=== PATIENT | male | born 1985 | race Caucasian/White ===

== ENCOUNTER 2020-05-16 15:24 | Emergency (ER) | payer BC ==
[2020-05-16] MEDS ORDERED: Lidocaine 1% PF 2 ML SDV INJECT ONE (15:42)
[2020-05-16] MEDS ORDERED: Bacitracin Oint 1 GM U/D Packet TOP ONE (15:42)
--- NOTE | 2020-05-16 16:11 | EDM.PDOC ---
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 He states the heel washer stringing machine operator valve grazed across the distal aspect of the left index finger. He feels that his finger was full of fluid and he had to gently squeeze the finger to drain the water out. Pain is located the finger but now is radiating up the forearm. He is concerned that the pressure may have broke a bone inside. Patient denies any fever, chills, headache, change in vision, syncope or near syncope. Denies any chest pain, back pain, shortness of breath or cough. Denies any abdominal pain, nausea, vomiting, diarrhea, constipation or dysuria. Has not noted any blood in urine or stool. Patient has been eating and drinking appropriately. Review of systems: As per history of present illness and below otherwise all systems reviewed and negative. Past medical history: As per history of present illness and as reviewed below otherwise noncontributory. Surgical history: As per history of present illness and as reviewed below otherwise noncontributory. Social history: See social history for further information Family history: As per history of present illness and as reviewed below otherwise noncontributory. Physical exam: General: Well developed and well nourished 35-year-old male. Alert and oriented. Nontoxic-appearing and in no acute distress. HEENT: Atraumatic, normocephalic, pupils equal and reactive bilaterally, negative for conjunctival pallor or scleral icterus, mucous membranes moist, trachea midline. No drooling or trismus noted. No meningeal signs. No hot potato voice noted. Lungs: Clear to auscultation, breath sounds equal bilaterally, chest nontender. Heart: S1S2, regular rate and rhythm without overt murmur Abdomen: Soft, nondistended, nontender. Negative for masses or hepatosplenomegaly. Negative for costovertebral tenderness. Skin: Superficial laceration of the left index finger. Otherwise remaining skin is intact, warm, dry. No lesions or rashes noted. Extremities: Washer injury of the left index finger, moves all extremities per self without difficulty or deficits, negative for cords or calf pain. Neurovascular unremarkable. Neuro: Awake, alert, oriented. Cranial nerves II through XII unremarkable. Cerebellum unremarkable. Motor and sensory unremarkable throughout. Exam nonfocal. Notes: X-ray shows soft tissue air and soft tissue swelling in the left second finger. I did speak with the hand surgeon on-call at [facility], Dr. Caro, who states that patient is at high risk for infection and should monitor the site very closely. We will place him on Bactrim. Discussed in great length with the patient signs and symptoms that would prompt him to return to the emergency room. We also discussed having a wound recheck in the next 24 to 48 hours. He is aware of my conversation with Dr. Caro. Follow-up, medication and supportive care measures were reviewed and discussed. Voices understanding and is agreeable to plan of care. Denies any further questions or concerns at this time. Diagnostics: X-ray Therapeutics: Wound care, bacitracin, splint Prescription: Bactrim, [place] Impression: Water pressure injury, left finger Plan: 1. Your x-ray shows soft tissue air and soft tissue swelling of the affected digit. This type of injury does pose high risk for infection. So continue to monitor the site very closely. Wash gently with mild soap and water at least twice daily. Take the antibiotic as directed. If your symptoms should worsen, new symptoms develop or any of the signs and symptoms we discussed should arise please return to the emergency room or call 911 (if needed). 2. As we discussed you should have this reevaluated in 24 to 48 hours, especially if there is any change. 3. Tylenol and/or ibuprofen as needed for pain management. 4. You can follow-up with Dr. Caro, the hand surgeon at [facility] as we discussed or your primary care provider. Definitive disposition and diagnosis as appropriate pending reevaluation and review of above. left index Pain Score (Numeric/FACES): 7 - Related Data Allergies Allergy/AdvReac Type Severity Reaction Status Date / Time No Known Allergies Allergy Verified 05/16/20 16:28 Home Meds: Home Meds Acetaminophen/HYDROcodone [[place] 325-5 MG] 1 dose PO Q4H #10 tablet 05/16/20 [Rx] Sulfamethoxazole/Trimethoprim [Bactrim Ds Tablet] 1 each PO BID 7 Days #14 tablet 05/16/20 [Rx] Past Medical History - Past Surgical History Other Musculoskeletal Surgeries/Procedures:: acl/mcl reconstruction ED ROS GENERAL - Review of Systems Review Of Systems: Comprehensive ROS is negative, except as noted in HPI. ED EXAM, SKIN/RASH Exam: See Below (See dictation) Course - Vital Signs Last Recorded V/S: Last Vital Signs Temp 97 F 05/16/20 15:55 Pulse 98 05/16/20 15:55 Resp 16 05/16/20 15:55 BP 130/70 05/16/20 15:55 Pulse Ox 98 05/16/20 15:55 - Orders/Labs/Meds Meds: Medications Discontinued Medications Generic Name Dose Route Start Last Admin Trade Name Jeremias PRN Reason Stop Dose Admin Bacitracin 1 dose 05/16/20 15:42 05/16/20 17:19 Bacitracin Oint 1 Gm TOP 05/16/20 15:43 1 dose ONETIME ONE Administration Lidocaine HCl 2 ml 05/16/20 15:42 05/16/20 16:20 Xylocaine-Mpf 1% INJECT 05/16/20 15:43 Not Given ONETIME ONE Departure - Departure Time of Disposition: 17:21 Disposition: Home, Self-Care 01 Clinical Impression: Traumatic effect of water pressure - Discharge Information Prescriptions: Sulfamethoxazole/Trimethoprim [Bactrim Ds Tablet] 1 each PO BID 7 Days #14 tablet Acetaminophen/HYDROcodone [[place] 325-5 MG] 1 dose PO Q4H #10 tablet Instructions: Laceration Care, Adult, [id number] Referrals: PCP,None [Primary Care Provider] - Forms: ED Department Discharge Additional Instructions: The following information is given to patients seen in the emergency department who are being discharged to home. This information is to outline your options for follow-up care. We provide all patients seen in our emergency department with a follow-up referral. The need for follow-up, as well as the timing and circumstances, are variable depending upon the specifics of your emergency department visit. If you don't have a primary care physician on staff, we will provide you with a referral. We always advise you to contact your personal physician following an emergency department visit to inform them of the circumstance of the visit and for follow-up with them and/or the need for any referrals to a consulting specialist. The emergency department will also refer you to a specialist when appropriate. This referral assures that you have the opportunity for follow-up care with a specialist. All of these measure are taken in an effort to provide you with optimal care, which includes your follow-up. Under all circumstances we always encourage you to contact your private physician who remains a resource for coordinating your care. When calling for follow-up care, please make the office aware that this follow-up is from your recent emergency room visit. If for any reason you are refused follow-up, please contact the [facility] Emergency Department at and asked to speak to the emergency department charge nurse. Dr. Kennedy & Dr. Caro [address] [address] Thank you for choosing the [facility] emergency department in [place] for your medical needs today. It was a pleasure caring for you. You were seen in the emergency department for water pressure injury of the index finger. 1. Your x-ray shows soft tissue air and soft tissue swelling of the affected digit. No fracture is identified. This type of injury does pose high risk for infection. So continue to monitor the site very closely. Wash gently with mild soap and water at least twice daily. Take the antibiotic as directed. If your symptoms should worsen, new symptoms develop or any of the signs and symptoms we discussed should arise please return to the emergency room or call [phone] (if needed). 2. As we discussed you should have this reevaluated in 24 to 48 hours, especially if there is any change. 3. Tylenol and/or ibuprofen as needed for pain management. 4. You can follow-up with Dr. Caro, the hand surgeon at [facility] as we discussed or your primary care provider.
[2020-05-16 16:28] VITALS: BP 130/70; PULSE 98
--- NOTE | 2020-05-16 17:06 | CR ---
Left second finger: 3 views of the left second finger were obtained. Soft tissue air is noted within the second finger. Diffuse soft tissue swelling is noted. No radiopaque foreign object is seen. No acute fracture or other bony abnormality is appreciated. Impression: 1. Soft tissue air and soft tissue swelling within the left second finger. 2. No acute bony abnormality is appreciated. Diagnostic code #3 This report was dictated in MDT
== END 2020-05-16 17:31 | disposition home or self-care (01) ==
LOC: MW.ED 15:24
DX: S61.211A Laceration without foreign body of left index finger without damage to nail, initial encounter (principal); W26.8XXA Contact with other sharp object(s), not elsewhere classified, initial encounter
CPT/HCPCS: 73140-26-F1; 73140-F1; 99283